=== PATIENT | female | born 1955 | race Caucasian/White ===

== ENCOUNTER → 2017-03-24 | Outpatient (CLI) | payer BC, OTHER ==
[~2017-03-24] MED LIST: HYDROmorphone INJ 2 MG/ML SYR/VIAL ONE
--- NOTE | 2017-03-24 12:00 | DIAGNOSTIC IMAGING REPORT ---
TWO VIEW CHEST CLINICAL HISTORY: Wheezing. FINDINGS: PA and lateral chest radiographs are obtained. No prior studies are available for comparison at the time of dictation. The cardiomediastinal silhouette is unremarkable. Nonspecific interstitial thickening is identified. Patchy airspace opacities are seen in the left mid to lower lung. No pleural effusion is identified and there is no pneumothorax. The skeletal structures are osteopenic. Degenerative change is seen throughout the thoracic spine. IMPRESSION: Patchy airspace opacities are seen in the left mid to lower lung. Correlated clinically for evidence of an infectious/inflammatory pneumonitis. Radiographic follow-up to resolution is recommended. Electronically signed by: Bart Dumas M.D. 03/24/2017 11:58 AM Dictated Date/Time: 03/24/2017 11:57 AM
--- NOTE | 2017-03-24 13:51 | DIAGNOSTIC IMAGING REPORT ---
CERVICAL SPINE 5 VIEWS CLINICAL HISTORY: Neck pain. FINDINGS: AP, lateral, bilateral oblique, and odontoid views of the cervical spine are obtained. No prior studies are available for comparison at the time of dictation. The skeletal structures are osteopenic. There is no radiographic evidence of fracture or subluxation. The odontoid process and lateral masses appear intact on the open-mouth view. Vertebral body height and alignment are maintained. The spinolaminar line is preserved. The spinous processes appear intact. There is mild degenerative disc space narrowing seen at C5-C6. A small posterior disc osteophytic complex at this level likely contributes to minimal acquired compromise of the central canal. The disc spaces are otherwise maintained. No significant neuroforaminal stenosis is suggested on the oblique views. The prevertebral soft tissues are within normal limits. The patient is edentulous. Partially imaged apical lung parenchyma is grossly clear. IMPRESSION: 1. No acute bony abnormality is seen involving the cervical spine. 2. Osteopenia and minimal spondylotic change as above. Dictated: 03/24/2017 11:58 AM Transcribed: 03/24/2017 1:51 PM [email or web address] Electronically signed by: Bart Dumas M.D. 03/24/2017 2:18 PM Dictated Date/Time: 03/24/2017 11:58 AM
== END | disposition home or self-care (01) ==
LOC: C.RADBBURG 11:43
PROVIDERS: ATTEND Family Medicine
DX: M54.2 Cervicalgia (principal)